=== PATIENT | female | born 1935 | race African-American/Black ===

== ENCOUNTER → 2017-11-06 | Outpatient (CLI) | payer MEDICARE, MEDICAID ==
[~2017-11-06] MED LIST: ALBU6.7H INH; AMLO10TA80 PO; ASPI-1159 PO; CHOL400C8 PO; CYCL30DR EACHEYE; DICL75TA5 PO; FLUT1DIS INH; IBUP-2030 PO; NASOI BOTHNSTRLS; PANT40TA4 PO; PROM6.2514 PO
== END | disposition home or self-care (01) ==
LOC: MRI 12:49
PROVIDERS: ATTEND Neurological Surgery
DX: M43.14 Spondylolisthesis, thoracic region (principal); M48.02 Spinal stenosis, cervical region; M50.322 Other cervical disc degeneration at C5-C6 level; M50.221 Other cervical disc displacement at C4-C5 level; M50.222 Other cervical disc displacement at C5-C6 level; G31.89 Other specified degenerative diseases of nervous system; M48.061 Spinal stenosis, lumbar region without neurogenic claudication
CPT/HCPCS: 70551; 72141; 72146; 72148

== ENCOUNTER 2019-07-09 17:58 | Emergency (ER) | payer MEDICARE, MEDICAID ==
[~2019-07-09] VITALS: Ht 165.1 cm; Wt 73.0 kg
[~2019-07-09 17:58] MED LIST changes: -ASPI-1159 PO; +ASPI-1393 PO
[2019-07-09 19:02] LABS: HEMOGLOBIN. 9.6 g/dL (12.0-16.0); MEAN CORPUSCULAR HEMOGLOBIN 28.9 pg (28.0-32.0); MEAN CORPUSCULAR VOLUME 87.1 fL (81.0-99.0); MEAN PLATELET VOLUME 8.2 fl (7.4-10.4); PLATELET 238 x1000/uL (130-400); RED BLOOD CELL COUNT 3.33 mill/uL (4.2-5.4); RED CELL DISTRIBUTION WIDTH 20.6 % (11.6-14.6)
[2019-07-09 19:09] LABS: CHLORIDE 97 mEq/L (98-107)
[2019-07-09] MEDS ORDERED: DICYCLOMINE 10 MG/5 ML ORAL SYR PO STA (19:45)
[2019-07-09] MEDS ORDERED: VISCOUS LIDOCAINE 2% 15 ML UDC PO STA (19:45)
[2019-07-09] MEDS ORDERED: MAGNESIUM/ALUMINUM HYDROXIDE/SIMETHICONE 30ML UDC PO STA (19:45)
[2019-07-09 19:59] LABS: PLATELET ESTIMATE NORMAL
[2019-07-09 20:45] VITALS: BP 139/84
== END 2019-07-09 20:54 | disposition home or self-care (01) ==
LOC: ER 17:58
DX: R10.9 Unspecified abdominal pain (principal); R07.9 Chest pain, unspecified; J44.9 Chronic obstructive pulmonary disease, unspecified; E11.9 Type 2 diabetes mellitus without complications; I10 Essential (primary) hypertension; G62.9 Polyneuropathy, unspecified; Z79.82 Long term (current) use of aspirin
CPT/HCPCS: 36415; 71045; 83880; 84484; 93005; 99284

== ENCOUNTER 2022-02-14 08:30 | Inpatient (IN) | payer MEDICARE, MEDICAID ==
[~2022-02-14] VITALS: Ht 162.6 cm; Wt 64.9 kg
[~2022-02-14 08:30] MED LIST changes: -ALBU6.7H INH; +ALBU6.7H15 INH; -ASPI-1393 PO; +ASPI-1497 PO; -PANT40TA4 PO; +PANT40TA51 PO
[2022-02-14] MEDS ORDERED: VISCOUS LIDOCAINE 2% 15 ML UDC PO STA (08:38)
[2022-02-14] MEDS ORDERED: DICYCLOMINE 10 MG/5 ML ORAL SYR PO STA (08:38)
[2022-02-14] MEDS ORDERED: MAGNESIUM/ALUMINUM HYDROXIDE/SIMETHICONE 30ML UDC PO STA (08:38)
[2022-02-14 09:14] LABS: BASOPHILS % 0.4 % (0.0-2.0); EOSINOPHILS % 0.5 % (0.0-5.0); LYMPHOCYTES % 27.1 % (20.0-50.0); MEAN CORPUSCULAR HEMOGLOBIN 29.5 pg (28.0-32.0); MEAN CORPUSCULAR VOLUME 88.1 fL (81.0-99.0); MEAN PLATELET VOLUME 7.4 fl (7.4-10.4); MONOCYTES % 7.7 % (2.0-8.0); NEUTROPHILS % 64.3 % (40.0-76.0); PLATELET 252 x1000/uL (130-400); RED BLOOD CELL COUNT 2.24 mill/uL (4.2-5.4); RED CELL DISTRIBUTION WIDTH 25.9 % (11.6-14.6)
[2022-02-14 09:15] LABS: CHLORIDE 106 mEq/L (98-107)
[2022-02-14 09:18] LABS: HEMOGLOBIN. 6.6 g/dL (12.0-16.0)
[2022-02-14 09:19] LABS: HEMATOCRIT. 19.7 % (36.0-48.0)
[2022-02-14 09:55] LABS: PLATELET ESTIMATE NORMAL
[2022-02-14 13:15] VITALS: BP 134/54
[2022-02-14 13:53] LABS: CLARITY URINE CLEAR (CLEAR); COLOR URINE YELLOW (YELLOW); KETONES URINE NEGATIVE (NEGATIVE); LEUKOCYTE ESTERASE URINE TRACE (NEGATIVE); NITRITE URINE NEGATIVE (NEGATIVE); OCCULT BLOOD URINE NEGATIVE (NEGATIVE); PROTEIN URINE TRACE (NEGATIVE); SPECIFIC GRAVITY URINE 1.016 (1.005-1.030); UROBILINOGEN URINE 0.2 E.U./dL (0.2-1.0)
[2022-02-14 16:00] VITALS: BP 129/56
[2022-02-14] MEDS ORDERED: CLONIDINE 0.1MG TABLET PO PRN (16:15)
[2022-02-14] MEDS ORDERED: CEFTRIAXONE 1 G PREMIX 50 ML IV SCH (16:15)
[2022-02-14] MEDS ORDERED: GUAIFENESIN 200MG/10ML SUGAR FREE UDC PO PRN (16:15)
[2022-02-14] MEDS ORDERED: LORAZEPAM 2MG/ML CPJ IV PRN (16:15)
[2022-02-14] MEDS ORDERED: HYDRALAZINE 20MG/ML VIAL IV PRN (16:15)
[2022-02-14] MEDS ORDERED: ONDANSETRON HCL 4MG/2ML INJ IV PRN (16:15)
[2022-02-14] MEDS ORDERED: MAGNESIUM/ALUMINUM HYDROXIDE/SIMETHICONE 30ML UDC PO PRN (16:15)
[2022-02-14] MEDS ORDERED: DOCUSATE SODIUM 100MG CAPSULE PO PRN (16:15)
[2022-02-14] MEDS ORDERED: IPRATROPIUM/ALBUTEROL 0.5-3(2.5)MG/3ML NEB HHN PRN (16:15)
[2022-02-14] MEDS ORDERED: MORPHINE SULFATE 2 MG/ML CPJ (NOT FOR IM USE) IV PRN (16:15)
[2022-02-14] MEDS ORDERED: DIPHENHYDRAMINE 50MG/ML VIAL IV PRN (16:15)
[2022-02-14] MEDS ORDERED: CEFTRIAXONE 1,000 MG in DEXTROSE 5% WATER 50 ML IV SCH (18:00)
[2022-02-14] MEDS: SODIUM CHLORIDE 0.45% 1,000 ML IV SCH (18:05)
[2022-02-14] MEDS ORDERED: GABA-529 PO (19:04)
[2022-02-14 20:00] VITALS: BP 92/35
[2022-02-14 21:06] VITALS: BP 102/38
[2022-02-14 21:21] VITALS: BP 117/46
[2022-02-14] MEDS: SODIUM CHLORIDE 0.9% INJ 3ML FLUSH IVF SCH (22:00)
[2022-02-14 22:30] VITALS: BP_SYST 114; BP_SYST 125; BP_DIAS 55; BP_DIAS 58
[2022-02-15] VITALS (7 sets, daily range): BP systolic 110–130; BP diastolic 40–56
[2022-02-15] MEDS: SODIUM CHLORIDE 0.9% INJ 3ML FLUSH IVF SCH ×3 (06:07→22:55)
[2022-02-15 06:36] LABS: HEMOGLOBIN. 7.9 g/dL (12.0-16.0); MEAN CORPUSCULAR HEMOGLOBIN 29.5 pg (28.0-32.0); MEAN CORPUSCULAR VOLUME 85.3 fL (81.0-99.0); MEAN PLATELET VOLUME 7.6 fl (7.4-10.4); PLATELET 211 x1000/uL (130-400); RED CELL DISTRIBUTION WIDTH 22.4 % (11.6-14.6)
[2022-02-15 06:54] LABS: CHLORIDE 105 mEq/L (98-107)
[2022-02-15 08:48] LABS: ATYPICAL LYMPHOCYTES 1; NUCLEATED RED BLOOD CELLS 6 /100 WBC
[2022-02-15 08:51] LABS: PLATELET ESTIMATE NORMAL
[2022-02-15] MEDS: SODIUM CHLORIDE 0.45% 1,000 ML IV SCH (12:30)
[2022-02-15 14:20] LABS: BG BASE EXCESS -2.3 mmol/L (-2.0-2.0); BG DEOXYHEMOGLOBIN 4.6 % (0.0-5.0); BG FRACTION INSPIRED OXYGEN 21; BG HCO3 ACT 20.4 mmol/L (22.0-26.0); BG METHEMOGLOBIN 0.3 % (0.0-1.5); BG OXYGEN SATURATION 95.3 % (92.0-98.5); BG OXYHEMOGLOBIN 94.1 % (94.0-97.0); BG PCO2 27.3 mmHg (35.0-45.0); BG PH 7.492 (7.350-7.450); BG PO2 77.6 mmHg (75.0-100.0); BG SAMPLE SITE RIGHT BRACHIAL; BG TOTAL HEMOGLOBIN 8.1 g/dL (12.0-18.0); BG VENT MODE ROOM AIR
[2022-02-15] MEDS: ACETAMINOPHEN 325MG TABLET PO PRN (15:57)
[2022-02-15] MEDS ORDERED: VANCOMYCIN 1GM PMX (XELLIA) 200 ML IV SCH (18:00)
[2022-02-15] MEDS: PIPERACILLIN/TAZOBACTAM 3.375 G in DEXTROSE 5% WATER 50 ML IV SCH (18:04)
[2022-02-15] MEDS: IPRATROPIUM/ALBUTEROL 0.5-3(2.5)MG/3ML NEB HHN SCH (21:01)
[2022-02-16] VITALS: BP 125/48
[2022-02-16] MEDS: IPRATROPIUM/ALBUTEROL 0.5-3(2.5)MG/3ML NEB HHN SCH ×3 (00:40→15:53)
[2022-02-16 04:00] VITALS: BP 118/44
[2022-02-16] MEDS: PIPERACILLIN/TAZOBACTAM 3.375 G in DEXTROSE 5% WATER 50 ML IV SCH ×5 (05:12→22:29)
[2022-02-16] MEDS: SODIUM CHLORIDE 0.9% INJ 3ML FLUSH IVF SCH ×3 (05:12→22:29)
[2022-02-16 08:00] VITALS: BP 118/54
[2022-02-16 08:02] LABS: TOTAL IRON BINDING CAPACITY 191 ug/dL (250-450)
[2022-02-16 08:08] LABS: FERRITIN 131 ng/mL (10-291)
[2022-02-16 08:11] LABS: VITAMIN B12 SERUM 1968 pg/mL (211-911)
[2022-02-16 08:16] LABS: FOLIC ACID (FOLATE) SERUM > 20.00 ng/mL (>5.38)
[2022-02-16 09:23] LABS: HEMATOCRIT 22.5 % (36.0-48.0); HEMOGLOBIN 7.5 g/dL (12.0-16.0); MEAN CORPUSCULAR HEMOGLOBIN 29.1 pg (28.0-32.0); PLATELET 188 x1000/uL (130-400); RED BLOOD CELL COUNT 2.58 mill/uL (4.2-5.4); RED CELL DISTRIBUTION WIDTH 23.1 % (11.6-14.6)
[2022-02-16] MEDS: SODIUM CHLORIDE 0.45% 1,000 ML IV SCH (09:31)
[2022-02-16 12:00] VITALS: BP 112/58
[2022-02-16] MEDS ORDERED: VANCOMYCIN 1000MG/20ML ORAL SOLN PO SCH (14:30)
[2022-02-16] MEDS ORDERED: NALOXONE HCL 0.4MG/ML VIAL IV PRN (15:45)
[2022-02-16 16:00] VITALS: BP 113/46
[2022-02-16] MEDS: VANCOMYCIN 1000MG/20ML ORAL SOLN PO SCH ×2 (18:30→23:48)
[2022-02-16 20:00] VITALS: BP 122/41
[2022-02-16] MEDS ORDERED: VANCOMYCIN 750MG PMX (XELLIA) 150 ML IV SCH (21:00)
[2022-02-16] MEDS: ACETAMINOPHEN 325MG TABLET PO PRN (22:32)
[2022-02-17] VITALS: BP 109/40
[2022-02-17] MEDS: SODIUM CHLORIDE 0.45% 1,000 ML IV SCH ×2 (03:52→23:54)
[2022-02-17 04:00] VITALS: BP 99/50
[2022-02-17] MEDS: PIPERACILLIN/TAZOBACTAM 3.375 G in DEXTROSE 5% WATER 50 ML IV SCH (05:13)
[2022-02-17] MEDS: SODIUM CHLORIDE 0.9% INJ 3ML FLUSH IVF SCH ×3 (05:14→21:21)
[2022-02-17] MEDS: VANCOMYCIN 1000MG/20ML ORAL SOLN PO SCH ×4 (05:14→23:54)
[2022-02-17] MEDS: HYDROCODONE/ACETAMINOPHEN 5/325MG TABLET PO PRN ×3 (05:20→23:54)
[2022-02-17 08:00] VITALS: BP 105/50
[2022-02-17 08:09] LABS: BASOPHILS % 0.6 % (0.0-2.0); EOSINOPHILS % 0.6 % (0.0-5.0); HEMATOCRIT. 21.9 % (36.0-48.0); HEMOGLOBIN. 7.4 g/dL (12.0-16.0); LYMPHOCYTES % 34.9 % (20.0-50.0); MEAN CORPUSCULAR HEMOGLOBIN 28.9 pg (28.0-32.0); MEAN CORPUSCULAR VOLUME 85.4 fL (81.0-99.0); MEAN PLATELET VOLUME 7.6 fl (7.4-10.4); MONOCYTES % 10.4 % (2.0-8.0); NEUTROPHILS % 53.5 % (40.0-76.0); PLATELET 178 x1000/uL (130-400); RED BLOOD CELL COUNT 2.56 mill/uL (4.2-5.4); RED CELL DISTRIBUTION WIDTH 22.9 % (11.6-14.6)
[2022-02-17] MEDS ORDERED: POTASSIUM CHLORIDE 20MEQ TABLET SR PO NR (10:45)
[2022-02-17 12:00] VITALS: BP 92/43
[2022-02-17] MEDS ORDERED: VANC250C5 MT (13:20)
[2022-02-17 16:00] VITALS: BP 103/48
[2022-02-17] MEDS: ALBUTEROL 6.7GM HFA INHALER ORI SCH ×3 (18:05→23:54)
[2022-02-17 20:00] VITALS: BP 97/41
[2022-02-18] VITALS: BP 104/44
[2022-02-18 04:00] VITALS: BP 118/46
[2022-02-18] MEDS: VANCOMYCIN 1000MG/20ML ORAL SOLN PO SCH (05:33)
[2022-02-18] MEDS: SODIUM CHLORIDE 0.9% INJ 3ML FLUSH IVF SCH (05:33)
[2022-02-18] MEDS: ALBUTEROL 6.7GM HFA INHALER ORI SCH (05:34)
[2022-02-18 08:00] VITALS: BP 123/48
[2022-02-18 08:37] LABS: BASOPHILS % 0.4 % (0.0-2.0); EOSINOPHILS % 1.3 % (0.0-5.0); HEMATOCRIT. 22.5 % (36.0-48.0); HEMOGLOBIN. 7.5 g/dL (12.0-16.0); LYMPHOCYTES % 39.6 % (20.0-50.0); MEAN CORPUSCULAR HEMOGLOBIN 28.9 pg (28.0-32.0); MEAN PLATELET VOLUME 7.5 fl (7.4-10.4); NEUTROPHILS % 50.7 % (40.0-76.0); PLATELET 178 x1000/uL (130-400); RED BLOOD CELL COUNT 2.59 mill/uL (4.2-5.4)
[2022-02-18 11:32] VITALS: BP 123/48
[2022-02-18 12:00] VITALS: BP 119/48
== END 2022-02-18 13:10 | disposition home or self-care (01) | DRG 871 ==
LOC: ER 08:50 → 7EST 11:19 → EDBEDREQ 11:26 → ENRESERV 11:47 → 7EST 02-16 21:12
PROVIDERS: ADMIT Internal Medicine; ATTEND Internal Medicine
PROC: 30233N1 Transfusion of Nonautologous Red Blood Cells into Peripheral Vein, Percutaneous Approach (ICD-10-PCS; principal; 2022-02-14)
DX: A41.89 Other specified sepsis (principal); U07.1 COVID-19; E43 Unspecified severe protein-calorie malnutrition; G92.8 Other toxic encephalopathy; A04.72 Enterocolitis due to Clostridium difficile, not specified as recurrent; D64.9 Anemia, unspecified; R65.20 Severe sepsis without septic shock; K57.30 Diverticulosis of large intestine without perforation or abscess without bleeding; E11.9 Type 2 diabetes mellitus without complications; J44.9 Chronic obstructive pulmonary disease, unspecified; M17.11 Unilateral primary osteoarthritis, right knee; I10 Essential (primary) hypertension; R41.0 Disorientation, unspecified; Z93.3 Colostomy status; Z79.82 Long term (current) use of aspirin; Z90.49 Acquired absence of other specified parts of digestive tract; Z68.24 Body mass index [BMI] 24.0-24.9, adult; Z79.899 Other long term (current) drug therapy; Z86.718 Personal history of other venous thrombosis and embolism
CPT/HCPCS: 36415; 36600; 71045; 74176; 80048; 80053; 80202; 81003; 82140; 82270; 82375; 82607; 82728; 82746; 82805; 82962; 83540; 83550; 84145; 85025; 85027; 85044; 86850; 86900; 86920; 87015; 87045; 87426; 87427; 87449; 87493; 89055; 93005; 94640; 99285; J0696; J2060; J2543; J3370; J7060; P9016

== ENCOUNTER 2022-02-19 18:26 | Inpatient (IN) | payer MEDICARE, MEDICAID ==
[~2022-02-19] VITALS: Ht 162.6 cm; Wt 62.1 kg
[~2022-02-19 18:26] MED LIST changes: -CHOL400C8 PO; -DICL75TA5 PO; -FLUT1DIS INH; +GABA-529 PO; -IBUP-2030 PO; -PANT40TA51 PO; -PROM6.2514 PO; +VANC250C5 MT
[2022-02-19 23:30] VITALS: BP 131/98
[2022-02-20] VITALS: BP_SYST 131; BP_DIAS 48; BP_DIAS 98
[2022-02-20] MEDS: ALBUTEROL 6.7GM HFA INHALER ORI SCH ×4 (03:45→15:47)
[2022-02-20 04:00] VITALS: BP 131/48
[2022-02-20 08:03] VITALS: BP 122/43
[2022-02-20] MEDS ORDERED: MORPHINE SULFATE 2 MG/ML CPJ (NOT FOR IM USE) IV PRN (09:15)
[2022-02-20] MEDS: ACETAMINOPHEN 325MG TABLET PO PRN ×2 (09:29→15:47)
[2022-02-20] MEDS ORDERED: NALOXONE HCL 0.4MG/ML VIAL IV PRN (09:30)
[2022-02-20 09:44] LABS: BASOPHILS % 0.3 % (0.0-2.0); HEMATOCRIT. 21.4 % (36.0-48.0); HEMOGLOBIN. 7.2 g/dL (12.0-16.0); LYMPHOCYTES % 38.1 % (20.0-50.0); MEAN CORPUSCULAR HEMOGLOBIN 28.8 pg (28.0-32.0); MEAN PLATELET VOLUME 7.6 fl (7.4-10.4); MONOCYTES % 12.2 % (2.0-8.0); NEUTROPHILS % 48.4 % (40.0-76.0); PLATELET 178 x1000/uL (130-400); RED BLOOD CELL COUNT 2.49 mill/uL (4.2-5.4); RED CELL DISTRIBUTION WIDTH 22.8 % (11.6-14.6)
[2022-02-20 11:37] LABS: PLATELET ESTIMATE NORMAL
[2022-02-20 12:00] VITALS: BP 113/40
[2022-02-20] MEDS: VANCOMYCIN 1000MG/20ML ORAL SOLN PO SCH ×2 (12:45→17:26)
[2022-02-20 16:00] VITALS: BP 118/50
[2022-02-20 20:00] VITALS: BP 113/63
[2022-02-21] VITALS: BP 112/43
[2022-02-21] MEDS: VANCOMYCIN 1000MG/20ML ORAL SOLN PO SCH ×5 (01:21→23:32)
[2022-02-21 04:00] VITALS: BP 122/47
[2022-02-21 08:00] VITALS: BP 123/44
[2022-02-21 12:00] VITALS: BP 130/55
[2022-02-21 16:00] VITALS: BP 149/56
[2022-02-21] MEDS: DICLOFENAC SODIUM 1% GEL 50GM TOP SCH ×2 (16:11→23:32)
[2022-02-21 19:55] LABS: BASOPHILS % 0.5 % (0.0-2.0); EOSINOPHILS % 0.7 % (0.0-5.0); HEMATOCRIT. 22.6 % (36.0-48.0); HEMOGLOBIN. 7.5 g/dL (12.0-16.0); LYMPHOCYTES % 39.9 % (20.0-50.0); MEAN CORPUSCULAR HEMOGLOBIN 29.2 pg (28.0-32.0); MEAN CORPUSCULAR VOLUME 88.1 fL (81.0-99.0); MEAN PLATELET VOLUME 7.4 fl (7.4-10.4); MONOCYTES % 14.9 % (2.0-8.0); PLATELET 178 x1000/uL (130-400); RED BLOOD CELL COUNT 2.57 mill/uL (4.2-5.4); RED CELL DISTRIBUTION WIDTH 22.8 % (11.6-14.6)
[2022-02-21 20:00] VITALS: BP 112/50
[2022-02-21 20:14] LABS: CHLORIDE 104 mEq/L (98-107)
[2022-02-21] MEDS: ALBUTEROL 6.7GM HFA INHALER ORI SCH (20:58)
[2022-02-22] VITALS: BP 107/52
[2022-02-22 04:00] VITALS: BP 109/45
[2022-02-22] MEDS: VANCOMYCIN 1000MG/20ML ORAL SOLN PO SCH ×2 (05:03→14:02)
[2022-02-22] MEDS: ALBUTEROL 6.7GM HFA INHALER ORI SCH ×2 (05:03→09:01)
[2022-02-22 07:31] VITALS: BP 123/55
[2022-02-22] MEDS: DICLOFENAC SODIUM 1% GEL 50GM TOP SCH (09:00)
[2022-02-22 12:08] VITALS: BP 119/53
[2022-02-22 12:42] VITALS: BP 119/53
[2022-02-22 13:05] VITALS: BP 119/53
[2022-02-23] MEDS ORDERED: VANCOMYCIN 1000MG/20ML ORAL SOLN PO SCH (12:00)
== END 2022-02-22 15:00 | disposition home or self-care (01) | DRG 871 ==
LOC: ER 18:26 → 7WST 23:57 → 7EST 02-21 10:01
PROVIDERS: ADMIT Internal Medicine; ATTEND Internal Medicine
DX: A41.89 Other specified sepsis (principal); U07.1 COVID-19; G92.8 Other toxic encephalopathy; A04.72 Enterocolitis due to Clostridium difficile, not specified as recurrent; D64.9 Anemia, unspecified; I10 Essential (primary) hypertension; J45.909 Unspecified asthma, uncomplicated; M17.11 Unilateral primary osteoarthritis, right knee; R65.20 Severe sepsis without septic shock; A41.4 Sepsis due to anaerobes; Z79.899 Other long term (current) drug therapy; Z86.718 Personal history of other venous thrombosis and embolism
CPT/HCPCS: 36415; 71045; 73560; 80048; 85025; 87426; 93970; 99285; C9803; J3370

== ENCOUNTER 2022-09-14 14:21 | Inpatient (IN) | payer MEDICARE, MEDICAID ==
[~2022-09-14] VITALS: Ht 165.1 cm; Wt 59.9 kg
[2022-09-14] MEDS ORDERED: KETOROLAC 60MG/2ML VIAL IM STA (15:23)
[2022-09-14 16:18] LABS: BASOPHILS % 0.3 % (0.0-2.0); EOSINOPHILS % 0.4 % (0.0-5.0); LYMPHOCYTES % 30.3 % (20.0-50.0); MEAN CORPUSCULAR HEMOGLOBIN 31.9 pg (28.0-32.0); MEAN CORPUSCULAR VOLUME 94.6 fL (81.0-99.0); MEAN PLATELET VOLUME 7.6 fl (7.4-10.4); PLATELET 203 x1000/uL (130-400); RED BLOOD CELL COUNT 2.09 mill/uL (4.2-5.4)
[2022-09-14 16:27] LABS: CHLORIDE 102 mEq/L (98-107)
[2022-09-14 16:33] LABS: HEMATOCRIT. 19.8 % (36.0-48.0); HEMOGLOBIN. 6.7 g/dL (12.0-16.0)
[2022-09-14] MEDS ORDERED: SODIUM CHLORIDE 0.9% 1,000 ML IV ONE (17:15)
[2022-09-14] MEDS ORDERED: MORPHINE SULFATE 4 MG/ML CPJ (NOT FOR IM USE) IV STA (17:15)
[2022-09-14] MEDS ORDERED: ONDANSETRON HCL 4MG/2ML INJ IV STA (17:15)
[2022-09-14] MEDS ORDERED: POTASSIUM CHLORIDE 20MEQ TABLET SR PO ONE (18:15)
[2022-09-14 19:00] LABS: PLATELET ESTIMATE NORMAL
[2022-09-14] MEDS ORDERED: CLONIDINE 0.1MG TABLET PO PRN (20:15)
[2022-09-14] MEDS ORDERED: ENOXAPARIN 40MG/0.4ML SYR SUBCUT SCH (20:15)
[2022-09-14] MEDS ORDERED: IPRATROPIUM/ALBUTEROL 0.5-3(2.5)MG/3ML NEB HHN PRN (20:15)
[2022-09-14] MEDS ORDERED: DOCUSATE SODIUM 100MG CAPSULE PO PRN (20:15)
[2022-09-14] MEDS ORDERED: ACETAMINOPHEN 325MG TABLET PO PRN ×2 (20:15)
[2022-09-14] MEDS ORDERED: GUAIFENESIN 200MG/10ML SUGAR FREE UDC PO PRN (20:15)
[2022-09-14] MEDS ORDERED: ONDANSETRON HCL 4MG/2ML INJ IV PRN (20:15)
[2022-09-14] MEDS ORDERED: NALOXONE HCL 0.4MG/ML VIAL IV PRN (20:30)
[2022-09-14 20:52] LABS: TOTAL IRON BINDING CAPACITY 144 ug/dL (250-450)
[2022-09-14 21:16] LABS: CLARITY URINE CLEAR (CLEAR); COLOR URINE YELLOW (YELLOW); KETONES URINE NEGATIVE (NEGATIVE); LEUKOCYTE ESTERASE URINE 2+ (NEGATIVE); NITRITE URINE NEGATIVE (NEGATIVE); OCCULT BLOOD URINE NEGATIVE (NEGATIVE); PH URINE 6.5 (4.5-8.0); PROTEIN URINE TRACE (NEGATIVE); SPECIFIC GRAVITY URINE 1.015 (1.005-1.030); UROBILINOGEN URINE 0.2 E.U./dL (0.2-1.0)
[2022-09-14 21:45] LABS: PHOSPHORUS 3.6 mg/dL (2.5-4.9)
[2022-09-14 22:17] LABS: VITAMIN B12 SERUM 614 pg/mL (211-911)
[2022-09-14 22:28] LABS: FOLIC ACID (FOLATE) SERUM > 20.00 ng/mL (>5.38)
[2022-09-15] VITALS (7 sets, daily range): BP systolic 115–130; BP diastolic 42–58
[2022-09-15] MEDS ORDERED: MAGNESIUM 2 G PREMIX 50 ML IV NR (00:30)
[2022-09-15] MEDS ORDERED: CEFTRIAXONE 1 G PREMIX 50 ML IV SCH (00:45)
[2022-09-15] MEDS ORDERED: SODIUM CHLORIDE 0.9% 1,000 ML IV ONE (00:45)
[2022-09-15] MEDS: CEFTRIAXONE 1,000 MG in DEXTROSE 5% WATER 50 ML IV SCH (05:40)
[2022-09-15 07:35] LABS: BASOPHILS % 0.3 % (0.0-2.0); EOSINOPHILS % 0.3 % (0.0-5.0); HEMATOCRIT. 24.2 % (36.0-48.0); LYMPHOCYTES % 32.8 % (20.0-50.0); MEAN CORPUSCULAR HEMOGLOBIN 32.2 pg (28.0-32.0); MEAN PLATELET VOLUME 7.7 fl (7.4-10.4); MONOCYTES % 9.3 % (2.0-8.0); NEUTROPHILS % 57.3 % (40.0-76.0); PLATELET 193 x1000/uL (130-400); RED BLOOD CELL COUNT 2.55 mill/uL (4.2-5.4); RED CELL DISTRIBUTION WIDTH 21.6 % (11.6-14.6)
[2022-09-15 07:48] LABS: HEMOGLOBIN. 8.2 g/dL (12.0-16.0)
[2022-09-15 08:17] LABS: CHLORIDE 105 mEq/L (98-107)
[2022-09-15 08:39] LABS: HDL CHOLESTEROL 30 mg/dL (40-59); LDL CHOLESTEROL 55 mg/dL (5-100); T4 FREE 1.13 ng/dL (0.76-1.46)
[2022-09-15 09:17] LABS: HEMATOCRIT 23.8 % (36.0-48.0); HEMOGLOBIN 8.2 g/dL (12.0-16.0)
[2022-09-15] MEDS ORDERED: FLUT16SP15 (11:00)
[2022-09-15] MEDS ORDERED: PANT40TA51 PO (11:00)
[2022-09-15] MEDS: MAGNESIUM/ALUMINUM HYDROXIDE/SIMETHICONE 30ML UDC PO PRN (12:15)
[2022-09-15] MEDS: HYDROCODONE/ACETAMINOPHEN 5/325MG TABLET PO PRN ×2 (12:19→19:07)
[2022-09-15] MEDS: SODIUM CHLORIDE 0.9% 1,000 ML IV SCH (17:25)
[2022-09-15] MEDS ORDERED: INFLUENZA VACCINE 05/PF 0.5 ML SYRINGE IM ONE (21:00)
[2022-09-16] MEDS ORDERED: CEFTRIAXONE 1,000 MG in DEXTROSE 5% WATER 50 ML IV SCH (00:45)
[2022-09-16 04:00] VITALS: BP 126/52
[2022-09-16] MEDS: SODIUM CHLORIDE 0.9% 1,000 ML IV SCH ×2 (04:33→13:00)
[2022-09-16] MEDS: CEFTRIAXONE 1,000 MG in DEXTROSE 5% WATER 50 ML IV SCH (06:25)
[2022-09-16 08:00] VITALS: BP 114/41
[2022-09-16 08:08] LABS: BASOPHILS % 0.1 % (0.0-2.0); EOSINOPHILS % 0.3 % (0.0-5.0); HEMATOCRIT. 23.3 % (36.0-48.0); LYMPHOCYTES % 14.9 % (20.0-50.0); MEAN CORPUSCULAR HEMOGLOBIN 32.8 pg (28.0-32.0); MEAN CORPUSCULAR VOLUME 95.8 fL (81.0-99.0); MEAN PLATELET VOLUME 7.8 fl (7.4-10.4); MONOCYTES % 5.2 % (2.0-8.0); NEUTROPHILS % 79.5 % (40.0-76.0); PLATELET 186 x1000/uL (130-400); RED BLOOD CELL COUNT 2.43 mill/uL (4.2-5.4); RED CELL DISTRIBUTION WIDTH 21.9 % (11.6-14.6)
[2022-09-16 09:36] LABS: CHLORIDE 104 mEq/L (98-107)
[2022-09-16 10:02] LABS: PHOSPHORUS 3.6 mg/dL (2.5-4.9)
[2022-09-16] MEDS: MAGNESIUM/ALUMINUM HYDROXIDE/SIMETHICONE 30ML UDC PO PRN (10:24)
[2022-09-16] MEDS: HYDROCODONE/ACETAMINOPHEN 5/325MG TABLET PO PRN ×2 (10:26→15:34)
[2022-09-16 12:00] VITALS: BP 108/45
[2022-09-16] MEDS ORDERED: SULF1TAB48 MT ×4 (13:06→14:38)
[2022-09-16 16:00] VITALS: BP 97/42
[2022-09-19 07:10] LABS: A/G RATIO 0.4 (0.7-1.7); ALBUMIN 3.3 g/dL (2.9-4.4); ALPHA-1-GLOBULIN 0.3 g/dL (0.0-0.4); ALPHA-2-GLOBULIN 0.7 g/dL (0.4-1.0); BETA GLOBULIN 0.9 g/dL (0.7-1.3); GAMMA GLOBULINS 6.6 g/dL (0.4-1.8); GLOBULIN TOTAL 8.6 g/dL (2.2-3.9); M-SPIKE 6.3 g/dL (Not Observed); TOTAL PROTEIN SERUM 11.9 g/dL (6.0-8.5)
== END 2022-09-16 17:55 | disposition home health service (06) | DRG 392 ==
LOC: ER 14:21 → EDBEDREQ 18:48 → EDBEDREQSVC 18:48 → SUPCPDRO 22:37 → ENRESERV 23:01 → 6EST 09-15 00:44
PROVIDERS: ADMIT Internal Medicine; ATTEND Internal Medicine
PROC: 30233N1 Transfusion of Nonautologous Red Blood Cells into Peripheral Vein, Percutaneous Approach (ICD-10-PCS; principal; 2022-09-15)
DX: K57.90 Diverticulosis of intestine, part unspecified, without perforation or abscess without bleeding (principal); N17.9 Acute kidney failure, unspecified; E44.0 Moderate protein-calorie malnutrition; N39.0 Urinary tract infection, site not specified; E87.1 Hypo-osmolality and hyponatremia; E87.6 Hypokalemia; E83.42 Hypomagnesemia; E11.9 Type 2 diabetes mellitus without complications; Z20.822 Contact with and (suspected) exposure to COVID-19; G89.29 Other chronic pain; M19.90 Unspecified osteoarthritis, unspecified site; D63.8 Anemia in other chronic diseases classified elsewhere; I10 Essential (primary) hypertension; J44.9 Chronic obstructive pulmonary disease, unspecified; Z87.11 Personal history of peptic ulcer disease; Z90.710 Acquired absence of both cervix and uterus; Z93.3 Colostomy status; Z79.899 Other long term (current) drug therapy; Z68.22 Body mass index [BMI] 22.0-22.9, adult; Z79.82 Long term (current) use of aspirin; Z90.49 Acquired absence of other specified parts of digestive tract
CPT/HCPCS: 36415; 71045; 74176; 76770; 80053; 80061; 81003; 82270; 82607; 82728; 82746; 82962; 83540; 83550; 83735; 83930; 84100; 84155; 84165; 84439; 84443; 84484; 85014; 85018; 85025; 86850; 86900; 86920; 87426; 90686; 93005; 99285; J0696; J3475; J7030; J7060; P9016

== ENCOUNTER 2022-09-25 12:45 | Inpatient (IN) | payer MEDICARE, MEDICAID ==
[~2022-09-25] VITALS: Ht 165.1 cm; Wt 57.2 kg
[~2022-09-25 12:45] MED LIST changes: +FLUT16SP15; +PANT40TA51 PO; +SULF1TAB48 MT; -VANC250C5 MT
[2022-09-25] MEDS ORDERED: ACETAMINOPHEN 325MG TABLET PO ONE (14:00)
[2022-09-25] MEDS ORDERED: NITROGLYCERIN 0.4MG TABLET SL SL PRN (14:00)
[2022-09-25 14:46] LABS: HEMATOCRIT. 21.8 % (36.0-48.0); HEMOGLOBIN. 7.3 g/dL (12.0-16.0); MEAN CORPUSCULAR HEMOGLOBIN 31.7 pg (28.0-32.0); MEAN CORPUSCULAR VOLUME 94.8 fL (81.0-99.0); MEAN PLATELET VOLUME 7.6 fl (7.4-10.4); PLATELET 245 x1000/uL (130-400); RED CELL DISTRIBUTION WIDTH 22.3 % (11.6-14.6)
[2022-09-25 15:02] LABS: CHLORIDE 97 mEq/L (98-107)
[2022-09-25] MEDS ORDERED: SODIUM CHLORIDE 0.9% 1,000 ML IV SCH (16:45)
[2022-09-25] MEDS ORDERED: ASPIRIN 325MG EC TABLET PO NR (17:15)
[2022-09-25 17:38] LABS: NUCLEATED RED BLOOD CELLS 6 /100 WBC; PLATELET ESTIMATE NORMAL
[2022-09-25] MEDS ORDERED: GUAIFENESIN 200MG/10ML SUGAR FREE UDC PO PRN (17:45)
[2022-09-25] MEDS ORDERED: ACETAMINOPHEN 325MG TABLET PO PRN ×2 (17:45)
[2022-09-25] MEDS ORDERED: ONDANSETRON HCL 4MG/2ML INJ IV PRN (17:45)
[2022-09-25] MEDS ORDERED: DOCUSATE SODIUM 100MG CAPSULE PO PRN (17:45)
[2022-09-25] MEDS ORDERED: HYDROCODONE/ACETAMINOPHEN 5/325MG TABLET PO PRN (17:45)
[2022-09-25] MEDS ORDERED: MORPHINE SULFATE 2 MG/ML CPJ (NOT FOR IM USE) IV PRN (17:45)
[2022-09-25] MEDS ORDERED: IPRATROPIUM/ALBUTEROL 0.5-3(2.5)MG/3ML NEB HHN PRN (17:45)
[2022-09-25 18:05] LABS: TOTAL IRON BINDING CAPACITY 136 ug/dL (250-450)
[2022-09-25] MEDS ORDERED: NALOXONE HCL 0.4MG/ML VIAL IV PRN (18:15)
[2022-09-25 18:35] LABS: VITAMIN B12 SERUM 767 pg/mL (211-911)
[2022-09-25 18:40] LABS: PHOSPHORUS 3.8 mg/dL (2.5-4.9)
[2022-09-25 18:49] LABS: T4 FREE 1.04 ng/dL (0.76-1.46)
[2022-09-25] MEDS: SODIUM CHLORIDE 0.9% 1,000 ML IV SCH (18:59)
[2022-09-25] MEDS: IPRATROPIUM/ALBUTEROL 0.5-3(2.5)MG/3ML NEB HHN SCH (20:30)
[2022-09-25] MEDS ORDERED: FAMOTIDINE 20MG TABLET PO SCH (21:00)
[2022-09-25 22:00] VITALS: BP 111/43
[2022-09-26] VITALS (7 sets, daily range): BP systolic 108–125; BP diastolic 35–52
[2022-09-26] MEDS: IPRATROPIUM/ALBUTEROL 0.5-3(2.5)MG/3ML NEB HHN SCH ×3 (02:02→14:23)
[2022-09-26] MEDS: SODIUM CHLORIDE 0.9% 1,000 ML IV SCH (04:56)
[2022-09-26 06:15] LABS: HEMOGLOBIN. 7.1 g/dL (12.0-16.0); MEAN CORPUSCULAR VOLUME 94.5 fL (81.0-99.0); MEAN PLATELET VOLUME 7.7 fl (7.4-10.4); PLATELET 232 x1000/uL (130-400); RED BLOOD CELL COUNT 2.21 mill/uL (4.2-5.4); RED CELL DISTRIBUTION WIDTH 22.6 % (11.6-14.6)
[2022-09-26] MEDS ORDERED: *PATIENT'S OWN MEDICATION STORAGE XX SCH (07:00)
[2022-09-26 08:51] LABS: HEMATOCRIT. 20.9 % (36.0-48.0)
[2022-09-26] MEDS ORDERED: AMLODIPINE 10MG TABLET PO SCH (09:00)
[2022-09-26 10:25] LABS: NUCLEATED RED BLOOD CELLS 6 /100 WBC
[2022-09-26 10:28] LABS: PLATELET ESTIMATE NORMAL
[2022-09-26] MEDS ORDERED: SODIUM CHLORIDE 0.9% 1,000 ML IV SCH (16:45)
[2022-09-26] MEDS: SUCRALFATE 1 G/10 ML UDC PO SCH ×3 (17:10→21:03)
[2022-09-26] MEDS: PANTOPRAZOLE SODIUM 40 MG/VIAL IV SCH (20:02)
[2022-09-27] VITALS (9 sets, daily range): BP systolic 99–136; BP diastolic 44–75
[2022-09-27] MEDS: DEXT 5%/0.9% NACL 1,000 ML IV SCH ×2 (02:42→17:55)
[2022-09-27 04:18] LABS: INR 1.2
[2022-09-27 04:23] LABS: HEMATOCRIT. 25.8 % (36.0-48.0); HEMOGLOBIN. 8.7 g/dL (12.0-16.0); MEAN CORPUSCULAR HEMOGLOBIN 31.6 pg (28.0-32.0); MEAN CORPUSCULAR VOLUME 93.7 fL (81.0-99.0); MEAN PLATELET VOLUME 7.5 fl (7.4-10.4); PLATELET 242 x1000/uL (130-400); RED BLOOD CELL COUNT 2.75 mill/uL (4.2-5.4); RED CELL DISTRIBUTION WIDTH 20.7 % (11.6-14.6)
[2022-09-27] MEDS: SUCRALFATE 1 G/10 ML UDC PO SCH ×4 (06:50→19:51)
[2022-09-27 07:47] LABS: NUCLEATED RED BLOOD CELLS 4 /100 WBC
[2022-09-27 07:48] LABS: PLATELET ESTIMATE NORMAL
[2022-09-27] MEDS: IPRATROPIUM/ALBUTEROL 0.5-3(2.5)MG/3ML NEB HHN SCH ×3 (09:43→20:40)
[2022-09-27] MEDS: PANTOPRAZOLE SODIUM 40 MG/VIAL IV SCH ×2 (10:17→19:51)
[2022-09-27] MEDS ORDERED: SIMETHICONE 40 MG/0.6 ML 15ML ONE (10:18)
[2022-09-27 11:19] LABS: BASOPHILS % 0.5 % (0.0-2.0); EOSINOPHILS % 0.5 % (0.0-5.0); HEMATOCRIT. 23.9 % (36.0-48.0); HEMOGLOBIN. 8.3 g/dL (12.0-16.0); LYMPHOCYTES % 23.2 % (20.0-50.0); MEAN CORPUSCULAR HEMOGLOBIN 32.8 pg (28.0-32.0); MEAN CORPUSCULAR VOLUME 94.5 fL (81.0-99.0); MONOCYTES % 7.8 % (2.0-8.0); RED BLOOD CELL COUNT 2.53 mill/uL (4.2-5.4); RED CELL DISTRIBUTION WIDTH 20.8 % (11.6-14.6)
[2022-09-27] MEDS ORDERED: FENTANYL CITRATE/PF 50MCG/ML 2ML VIAL ONE (11:26)
[2022-09-27] MEDS ORDERED: MIDAZOLAM HCL 2 MG/2 ML VIAL ONE (11:26)
[2022-09-27 11:28] LABS: INR 1.2
[2022-09-27] MEDS ORDERED: EPHEDRINE SULFATE 50MG/ML VIAL ONE ×44 (11:29→11:30)
[2022-09-27] MEDS ORDERED: PROPOFOL 200MG/20ML VIAL IV ONE (12:35)
[2022-09-27 13:49] LABS: MEAN PLATELET VOLUME 7.8 fl (7.4-10.4); PLATELET 241 x1000/uL (130-400)
[2022-09-27 16:28] LABS: HEMATOCRIT 23.7 % (36.0-48.0)
[2022-09-28] VITALS: BP 111/48
[2022-09-28] MEDS: IPRATROPIUM/ALBUTEROL 0.5-3(2.5)MG/3ML NEB HHN SCH ×4 (01:50→21:00)
[2022-09-28 04:00] VITALS: BP 122/48
[2022-09-28] MEDS: DEXT 5%/0.9% NACL 1,000 ML IV SCH (05:01)
[2022-09-28] MEDS: SUCRALFATE 1 G/10 ML UDC PO SCH ×4 (06:17→20:11)
[2022-09-28 07:49] LABS: BASOPHILS % 0.2 % (0.0-2.0); EOSINOPHILS % 0.5 % (0.0-5.0); HEMATOCRIT. 22.5 % (36.0-48.0); HEMOGLOBIN. 7.6 g/dL (12.0-16.0); LYMPHOCYTES % 29.5 % (20.0-50.0); MEAN CORPUSCULAR HEMOGLOBIN 31.6 pg (28.0-32.0); MEAN CORPUSCULAR VOLUME 93.4 fL (81.0-99.0); MEAN PLATELET VOLUME 7.6 fl (7.4-10.4); MONOCYTES % 8.4 % (2.0-8.0); NEUTROPHILS % 61.4 % (40.0-76.0); PLATELET 225 x1000/uL (130-400); RED CELL DISTRIBUTION WIDTH 20.5 % (11.6-14.6)
[2022-09-28 08:20] VITALS: BP 121/53
[2022-09-28] MEDS: PANTOPRAZOLE SODIUM 40 MG/VIAL IV SCH ×2 (08:30→20:11)
[2022-09-28 11:29] VITALS: BP 117/45
[2022-09-28 16:04] VITALS: BP 129/58
[2022-09-28 19:36] LABS: HEMATOCRIT 23.8 % (36.0-48.0); HEMOGLOBIN 8.1 g/dL (12.0-16.0)
[2022-09-28 20:00] VITALS: BP 148/66
[2022-09-28] MEDS ORDERED: POTASSIUM CHLORIDE 20MEQ TABLET SR PO NR (22:45)
[2022-09-29] VITALS: BP 112/57
[2022-09-29 01:31] LABS: HEMATOCRIT 23.1 % (36.0-48.0); HEMOGLOBIN 7.9 g/dL (12.0-16.0)
[2022-09-29] MEDS: IPRATROPIUM/ALBUTEROL 0.5-3(2.5)MG/3ML NEB HHN SCH ×4 (02:02→21:09)
[2022-09-29 04:00] VITALS: BP 134/55
[2022-09-29] MEDS: SUCRALFATE 1 G/10 ML UDC PO SCH ×4 (06:20→20:10)
[2022-09-29 06:39] LABS: HEMATOCRIT 23.8 % (36.0-48.0)
[2022-09-29 06:53] LABS: BASOPHILS % 0.2 % (0.0-2.0); EOSINOPHILS % 0.5 % (0.0-5.0); HEMATOCRIT. 22.7 % (36.0-48.0); HEMOGLOBIN. 7.7 g/dL (12.0-16.0); LYMPHOCYTES % 30.7 % (20.0-50.0); MEAN CORPUSCULAR HEMOGLOBIN 31.5 pg (28.0-32.0); MEAN CORPUSCULAR VOLUME 93.1 fL (81.0-99.0); MEAN PLATELET VOLUME 7.3 fl (7.4-10.4); MONOCYTES % 8.2 % (2.0-8.0); NEUTROPHILS % 60.4 % (40.0-76.0); PLATELET 209 x1000/uL (130-400); RED BLOOD CELL COUNT 2.44 mill/uL (4.2-5.4); RED CELL DISTRIBUTION WIDTH 20.6 % (11.6-14.6)
[2022-09-29 08:00] VITALS: BP 123/70
[2022-09-29] MEDS: PANTOPRAZOLE SODIUM 40 MG/VIAL IV SCH ×2 (09:10→20:10)
[2022-09-29 12:00] VITALS: BP 120/66
[2022-09-29 16:00] VITALS: BP 135/65
[2022-09-29 16:24] LABS: HEMATOCRIT 24.2 % (36.0-48.0); HEMOGLOBIN 8.1 g/dL (12.0-16.0)
[2022-09-29] MEDS ORDERED: SODIUM CHLORIDE 0.9% 1,000 ML IV SCH (17:30)
[2022-09-29 20:00] VITALS: BP 122/49
[2022-09-30] VITALS: BP 129/61
[2022-09-30] MEDS: IPRATROPIUM/ALBUTEROL 0.5-3(2.5)MG/3ML NEB HHN SCH ×3 (02:53→14:41)
[2022-09-30 04:00] VITALS: BP 120/43
[2022-09-30] MEDS: SUCRALFATE 1 G/10 ML UDC PO SCH ×2 (06:37→12:40)
[2022-09-30 07:40] LABS: BASOPHILS % 0.4 % (0.0-2.0); EOSINOPHILS % 0.8 % (0.0-5.0); HEMATOCRIT. 24.2 % (36.0-48.0); HEMOGLOBIN. 8.1 g/dL (12.0-16.0); MEAN CORPUSCULAR HEMOGLOBIN 31.6 pg (28.0-32.0); MEAN CORPUSCULAR VOLUME 94.1 fL (81.0-99.0); MEAN PLATELET VOLUME 7.2 fl (7.4-10.4); MONOCYTES % 8.5 % (2.0-8.0); NEUTROPHILS % 55.3 % (40.0-76.0); PLATELET 213 x1000/uL (130-400); RED BLOOD CELL COUNT 2.57 mill/uL (4.2-5.4); RED CELL DISTRIBUTION WIDTH 20.6 % (11.6-14.6)
[2022-09-30 08:00] VITALS: BP 119/53
[2022-09-30] MEDS: PANTOPRAZOLE SODIUM 40 MG/VIAL IV SCH (08:37)
[2022-09-30 12:00] VITALS: BP 120/54
[2022-09-30 14:37] VITALS: BP 120/54
[2022-10-02 13:11] LABS: A/G RATIO 0.5 (0.7-1.7); ALBUMIN 4.1 g/dL (2.9-4.4); ALPHA-1-GLOBULIN 0.4 g/dL (0.0-0.4); ALPHA-2-GLOBULIN 0.8 g/dL (0.4-1.0); BETA GLOBULIN 1.1 g/dL (0.7-1.3); GAMMA GLOBULINS 6.8 g/dL (0.4-1.8); GLOBULIN TOTAL 9.1 g/dL (2.2-3.9); M-SPIKE 6.5 g/dL (Not Observed); TOTAL PROTEIN SERUM 13.2 g/dL (6.0-8.5)
== END 2022-09-30 16:10 | disposition home health service (06) | DRG 377 ==
LOC: ER 12:45 → EDBEDREQ 14:14 → 8WST 17:03 → EDBEDREQ 17:26 → EDBEDREQTM 17:26 → ENRESERV 20:30
PROVIDERS: ADMIT Internal Medicine; ATTEND Internal Medicine
PROC: 30233N1 Transfusion of Nonautologous Red Blood Cells into Peripheral Vein, Percutaneous Approach (ICD-10-PCS; 2022-09-26)
PROC: 0DB78ZX Excision of Stomach, Pylorus, Via Natural or Artificial Opening Endoscopic, Diagnostic (ICD-10-PCS; principal; 2022-09-27)
DX: K29.71 Gastritis, unspecified, with bleeding (principal); J96.00 Acute respiratory failure, unspecified whether with hypoxia or hypercapnia; N17.0 Acute kidney failure with tubular necrosis; E44.0 Moderate protein-calorie malnutrition; E87.1 Hypo-osmolality and hyponatremia; N18.9 Chronic kidney disease, unspecified; E11.22 Type 2 diabetes mellitus with diabetic chronic kidney disease; E86.1 Hypovolemia; D63.1 Anemia in chronic kidney disease; E87.6 Hypokalemia; Z20.822 Contact with and (suspected) exposure to COVID-19; E88.09 Other disorders of plasma-protein metabolism, not elsewhere classified; D72.825 Bandemia; Z87.11 Personal history of peptic ulcer disease; Z86.718 Personal history of other venous thrombosis and embolism; Z79.899 Other long term (current) drug therapy; Z68.21 Body mass index [BMI] 21.0-21.9, adult; Z79.82 Long term (current) use of aspirin; Z93.3 Colostomy status
CPT/HCPCS: 36415; 71045; 74176; 76770; 78582; 80048; 80053; 80061; 82607; 82728; 82746; 83540; 83550; 83735; 83880; 84100; 84155; 84165; 84439; 84443; 84484; 85014; 85018; 85025; 85044; 85049; 85379; 85384; 86850; 86900; 86920; 87426; 87804; 88305; 93005; 93306; 93970; 94640; 97162; 97166; 99285; A9558; C9113; C9803; J2250; J2270; J2704; J3010; J3490; J7030; J7042; P9016; A4315

== ENCOUNTER 2022-11-27 12:23 | Inpatient (IN) | payer MEDICARE, MEDICAID ==
[~2022-11-27] VITALS: Ht 162.6 cm; Wt 47.8 kg
[2022-11-27] MEDS ORDERED: SODIUM CHLORIDE 0.9% 1,000 ML IV ONE (13:00)
[2022-11-27 14:53] LABS: MEAN CORPUSCULAR HEMOGLOBIN 33.1 pg (28.0-32.0); MEAN PLATELET VOLUME 7.7 fl (7.4-10.4); PLATELET 180 x1000/uL (130-400); RED BLOOD CELL COUNT 1.88 mill/uL (4.2-5.4); RED CELL DISTRIBUTION WIDTH 26.2 % (11.6-14.6)
[2022-11-27 14:58] LABS: INR 1.4; PROTHROMBIN TIME 14.3 sec (9.6-11.0)
[2022-11-27 15:01] LABS: CHLORIDE 104 mEq/L (98-107)
[2022-11-27 15:15] LABS: HEMOGLOBIN. 6.2 g/dL (12.0-16.0)
[2022-11-27 15:16] LABS: HEMATOCRIT. 18.8 % (36.0-48.0)
[2022-11-27] MEDS ORDERED: CEFTRIAXONE 1 G PREMIX 50 ML IV NR (15:30)
[2022-11-27] MEDS ORDERED: AZITHROMYCIN 500MG/250ML 250 ML IV NR (15:30)
[2022-11-27] MEDS ORDERED: DEXT 5% WATER + KCL 40MEQ/L 1,000 ML IV ONE (16:00)
[2022-11-27] MEDS ORDERED: ACETAMINOPHEN 650MG SUPP PR PRN ×2 (16:30)
[2022-11-27] MEDS ORDERED: ONDANSETRON HCL 4MG/2ML INJ IV PRN (16:30)
[2022-11-27] MEDS ORDERED: IPRATROPIUM/ALBUTEROL 0.5-3(2.5)MG/3ML NEB HHN PRN (16:30)
[2022-11-27] MEDS ORDERED: DEXT 5%/0.9% NACL 1,000 ML IV SCH (16:45)
[2022-11-27 16:58] LABS: NUCLEATED RED BLOOD CELLS 7 /100 WBC; PLATELET ESTIMATE NORMAL
[2022-11-27] MEDS: PANTOPRAZOLE SODIUM 40 MG/VIAL IV SCH (17:24)
[2022-11-27 17:25] LABS: CLARITY URINE CLEAR (CLEAR); COLOR URINE YELLOW (YELLOW); KETONES URINE TRACE (NEGATIVE); LEUKOCYTE ESTERASE URINE NEGATIVE (NEGATIVE); NITRITE URINE NEGATIVE (NEGATIVE); OCCULT BLOOD URINE NEGATIVE (NEGATIVE); PH URINE 5.5 (4.5-8.0); PROTEIN URINE 1+ (NEGATIVE); SPECIFIC GRAVITY URINE 1.015 (1.005-1.030); UROBILINOGEN URINE 0.2 E.U./dL (0.2-1.0)
[2022-11-27 17:40] LABS: *AMPHETAMINES SCREEN URINE NEGATIVE (NEGATIVE); *BARBITURATES SCREEN URINE NEGATIVE (NEGATIVE); *BENZODIAZEPINES SCREEN URINE NEGATIVE (NEGATIVE); *COCAINE SCREEN URINE NEGATIVE (NEGATIVE); CANNABINOID URINE SCREEN NEGATIVE (NEGATIVE); METHADONE URINE SCREEN NEGATIVE (NEGATIVE); OPIATES URINE SCREEN NEGATIVE (NEGATIVE); PHENCYCLIDINE URINE SCREEN NEGATIVE (NEGATIVE)
[2022-11-27 17:51] LABS: VITAMIN B12 SERUM 717 pg/mL (211-911)
[2022-11-27] MEDS ORDERED: FOLIC ACID 1 MG, THIAMINE HCL 100 MG, MVI, ADULT NO.1 10 ML in DEXT 5%/0.9% NACL 1,000 ML IV ONE ×4 (19:00)
[2022-11-27 19:26] LABS: FOLIC ACID (FOLATE) SERUM > 20.00 ng/mL (>5.38)
[2022-11-27] MEDS ORDERED: BUDESONIDE 0.5MG/2ML NEB HHN SCH (20:00)
[2022-11-28] VITALS (7 sets, daily range): BP systolic 127–146; BP diastolic 60–102
[2022-11-28 06:11] LABS: CHLORIDE 106 mEq/L (98-107)
[2022-11-28 06:24] LABS: BASOPHILS % 0.2 % (0.0-2.0); EOSINOPHILS % 0.2 % (0.0-5.0); HEMATOCRIT. 24.2 % (36.0-48.0); HEMOGLOBIN. 8.2 g/dL (12.0-16.0); LYMPHOCYTES % 21.2 % (20.0-50.0); MEAN CORPUSCULAR HEMOGLOBIN 33.2 pg (28.0-32.0); MEAN CORPUSCULAR VOLUME 97.4 fL (81.0-99.0); MEAN PLATELET VOLUME 7.8 fl (7.4-10.4); MONOCYTES % 8.9 % (2.0-8.0); NEUTROPHILS % 69.5 % (40.0-76.0); PLATELET 177 x1000/uL (130-400); RED BLOOD CELL COUNT 2.48 mill/uL (4.2-5.4)
[2022-11-28 06:28] LABS: HDL CHOLESTEROL 34 mg/dL (40-59); LDL CHOLESTEROL 45 mg/dL (5-100); PHOSPHORUS 2.4 mg/dL (2.5-4.9); T4 FREE 1.14 ng/dL (0.76-1.46); TOTAL IRON BINDING CAPACITY 128 ug/dL (250-450)
[2022-11-28] MEDS ORDERED: POTASSIUM CHLORIDE 20MEQ TABLET SR PO NR (08:00)
[2022-11-28] MEDS ORDERED: NIRM1TAB4 PO (08:21)
[2022-11-28] MEDS ORDERED: MEMA10TA55 PO (08:21)
[2022-11-28] MEDS: PANTOPRAZOLE SODIUM 40 MG/VIAL IV SCH ×2 (08:27→18:17)
[2022-11-28] MEDS ORDERED: MAGNESIUM 2 G PREMIX 50 ML IV SCH (09:00)
[2022-11-28] MEDS ORDERED: POTASSIUM PHOS,M-BASIC-D-BASIC 30 MMOL in DEXT 5% WATER 500 ML IV SCH (09:00)
[2022-11-28] MEDS: SODIUM CHLORIDE 0.9% 1,000 ML IV SCH ×2 (11:53→21:26)
[2022-11-28] MEDS: SUCRALFATE 1 G/10 ML UDC PO SCH ×3 (11:53→21:24)
[2022-11-28 12:32] LABS: HEMATOCRIT 24.4 % (36.0-48.0); HEMOGLOBIN 8.3 g/dL (12.0-16.0)
[2022-11-28] MEDS ORDERED: FERROUS SULFATE 300MG/5ML UDC PO NR (13:30)
[2022-11-28] MEDS: PIPERACILLIN/TAZOBACTAM 3.375 G in DEXTROSE 5% WATER 50 ML IV SCH (16:18)
[2022-11-28 20:31] LABS: HEMATOCRIT 22.7 % (36.0-48.0); HEMOGLOBIN 7.6 g/dL (12.0-16.0)
[2022-11-28] MEDS: DEXT 5%/0.9% NACL 1,000 ML IV SCH (23:37)
[2022-11-29] VITALS (9 sets, daily range): BP systolic 110–151; BP diastolic 66–113
[2022-11-29 01:21] LABS: HEMATOCRIT 23.4 % (36.0-48.0); HEMOGLOBIN 7.9 g/dL (12.0-16.0)
[2022-11-29 03:48] LABS: INR 1.3; PROTHROMBIN TIME 13.9 sec (9.6-11.0)
[2022-11-29 03:49] LABS: HEMATOCRIT. 21.8 % (36.0-48.0); HEMOGLOBIN. 7.4 g/dL (12.0-16.0); MEAN CORPUSCULAR HEMOGLOBIN 32.8 pg (28.0-32.0); MEAN CORPUSCULAR VOLUME 96.4 fL (81.0-99.0); MEAN PLATELET VOLUME 7.7 fl (7.4-10.4); PLATELET 191 x1000/uL (130-400); RED BLOOD CELL COUNT 2.26 mill/uL (4.2-5.4); RED CELL DISTRIBUTION WIDTH 22.8 % (11.6-14.6)
[2022-11-29 04:21] LABS: CHLORIDE 111 mEq/L (98-107)
[2022-11-29 04:37] LABS: PHOSPHORUS 2.1 mg/dL (2.5-4.9)
[2022-11-29] MEDS: SUCRALFATE 1 G/10 ML UDC PO SCH ×4 (06:31→21:48)
[2022-11-29] MEDS ORDERED: POTASSIUM CHLORIDE 20MEQ TABLET SR PO NR ×2 (08:00→10:45)
[2022-11-29] MEDS ORDERED: MAGNESIUM 2 G PREMIX 50 ML IV NR (09:00)
[2022-11-29 09:07] LABS: FOLATE HEMATOCRIT 24.8 % (34.0-46.6)
[2022-11-29 09:07] LABS: VITAMIN D 25-OH 65.1 ng/mL (30.0-100.0)
[2022-11-29] MEDS ORDERED: POTASSIUM PHOS,M-BASIC-D-BASIC 30 MMOL in SODIUM CHLORIDE 0.9% 500 ML IV NR (09:30)
[2022-11-29] MEDS: KCL 20MEQ/100ML PREMIX 100 ML IV SCH ×2 (09:31→11:26)
[2022-11-29] MEDS: PIPERACILLIN/TAZOBACTAM 3.375 G in DEXTROSE 5% WATER 50 ML IV SCH ×3 (09:31→21:48)
[2022-11-29] MEDS: PANTOPRAZOLE SODIUM 40 MG/VIAL IV SCH ×2 (09:32→17:17)
[2022-11-29 11:04] LABS: HEMATOCRIT 21.5 % (36.0-48.0); HEMOGLOBIN 7.5 g/dL (12.0-16.0)
[2022-11-29] MEDS: SODIUM CHLORIDE 0.9% 1,000 ML IV SCH (11:27)
[2022-11-29] MEDS: DEXT 5%/0.9% NACL 1,000 ML IV SCH (12:29)
[2022-11-29] MEDS ORDERED: KCL 10MEQ/50ML PREMIX 50 ML IV NR (12:30)
[2022-11-29 13:00] LABS: NUCLEATED RED BLOOD CELLS 9 /100 WBC; PLATELET ESTIMATE NORMAL
[2022-11-29 23:52] LABS: HEMATOCRIT 23.3 % (36.0-48.0); HEMOGLOBIN 8.1 g/dL (12.0-16.0)
[2022-11-30] VITALS (7 sets, daily range): BP systolic 126–156; BP diastolic 63–89
[2022-11-30] MEDS: SODIUM CHLORIDE 0.9% 1,000 ML IV SCH ×2 (00:24→00:25)
[2022-11-30] MEDS: DEXT 5%/0.9% NACL 1,000 ML IV SCH ×2 (03:44→14:34)
[2022-11-30 04:41] LABS: HEMATOCRIT. 25.4 % (36.0-48.0); HEMOGLOBIN. 8.7 g/dL (12.0-16.0); MEAN CORPUSCULAR HEMOGLOBIN 32.9 pg (28.0-32.0); MEAN CORPUSCULAR VOLUME 96.4 fL (81.0-99.0); MEAN PLATELET VOLUME 8.1 fl (7.4-10.4); PLATELET 197 x1000/uL (130-400); RED BLOOD CELL COUNT 2.63 mill/uL (4.2-5.4); RED CELL DISTRIBUTION WIDTH 22.4 % (11.6-14.6)
[2022-11-30 04:49] LABS: CHLORIDE 107 mEq/L (98-107)
[2022-11-30 05:07] LABS: PHOSPHORUS 2.1 mg/dL (2.5-4.9)
[2022-11-30 05:39] LABS: INR 1.3; PROTHROMBIN TIME 13.4 sec (9.6-11.0)
[2022-11-30] MEDS: SUCRALFATE 1 G/10 ML UDC PO SCH ×5 (06:34→21:45)
[2022-11-30] MEDS: PIPERACILLIN/TAZOBACTAM 3.375 G in DEXTROSE 5% WATER 50 ML IV SCH ×3 (06:34→21:46)
[2022-11-30] MEDS ORDERED: KCL 10MEQ/50ML PREMIX 50 ML IV NR ×2 (08:01→10:00)
[2022-11-30] MEDS ORDERED: POTASSIUM-SODIUM PHOSPHATE POWDER PACKET PO NR (08:30)
[2022-11-30] MEDS: PANTOPRAZOLE SODIUM 40 MG/VIAL IV SCH ×2 (08:49→17:05)
[2022-11-30 11:37] LABS: HEMATOCRIT 27.8 % (36.0-48.0); HEMOGLOBIN 9.2 g/dL (12.0-16.0)
[2022-11-30 11:57] LABS: NUCLEATED RED BLOOD CELLS 7 /100 WBC; PLATELET ESTIMATE NORMAL
[2022-11-30] MEDS ORDERED: SODIUM CHLORIDE 0.9% 10ML VIAL ONE (12:25)
[2022-11-30] MEDS ORDERED: EPHEDRINE SULFATE 50MG/ML VIAL ONE (12:25)
[2022-11-30] MEDS ORDERED: LIDOCAINE HCL 1% 10 MG/ML 10ML VIAL ONE (12:25)
[2022-11-30] MEDS ORDERED: PHENYLEPHRINE HCL 10 MG/ML 1ML (IV VIAL) IV ONE (12:25)
[2022-11-30] MEDS ORDERED: PROPOFOL 200MG/20ML VIAL IV ONE (12:25)
[2022-11-30 13:11] LABS: FOLATE HEMOLYSATE > 620.0 ng/mL (Not Estab.); FOLATE RBC > 2500 ng/mL (>498)
[2022-11-30] MEDS: AMLODIPINE 10MG TABLET PO SCH (14:44)
[2022-11-30 18:50] LABS: HEMATOCRIT 26.4 % (36.0-48.0); HEMOGLOBIN 9.1 g/dL (12.0-16.0)
[2022-11-30] MEDS: GABAPENTIN 100MG CAPSULE PO SCH (21:45)
[2022-12-01] VITALS (7 sets, daily range): BP systolic 122–152; BP diastolic 45–94
[2022-12-01 00:17] LABS: HEMATOCRIT 25.4 % (36.0-48.0); HEMOGLOBIN 8.8 g/dL (12.0-16.0)
[2022-12-01] MEDS: SUCRALFATE 1 G/10 ML UDC PO SCH ×4 (05:57→22:13)
[2022-12-01] MEDS: DEXT 5%/0.9% NACL 1,000 ML IV SCH ×2 (05:58→16:58)
[2022-12-01] MEDS: PIPERACILLIN/TAZOBACTAM 3.375 G in DEXTROSE 5% WATER 50 ML IV SCH ×3 (05:58→22:13)
[2022-12-01 08:01] LABS: HEMATOCRIT. 29.4 % (36.0-48.0); HEMOGLOBIN. 9.5 g/dL (12.0-16.0); MEAN CORPUSCULAR HEMOGLOBIN 32.2 pg (28.0-32.0); MEAN CORPUSCULAR VOLUME 99.6 fL (81.0-99.0); MEAN PLATELET VOLUME 7.5 fl (7.4-10.4); PLATELET 187 x1000/uL (130-400); RED BLOOD CELL COUNT 2.95 mill/uL (4.2-5.4); RED CELL DISTRIBUTION WIDTH 22.8 % (11.6-14.6)
[2022-12-01] MEDS: PANTOPRAZOLE SODIUM 40 MG/VIAL IV SCH ×2 (08:59→16:58)
[2022-12-01] MEDS: AMLODIPINE 10MG TABLET PO SCH (08:59)
[2022-12-01] MEDS ORDERED: MEMANTINE HCL 10MG TABLET PO SCH (09:00)
[2022-12-01 12:55] LABS: CHLORIDE 105 mEq/L (98-107)
[2022-12-01 13:14] LABS: PHOSPHORUS 2.7 mg/dL (2.5-4.9)
[2022-12-01] MEDS ORDERED: POTASSIUM CHLORIDE 20MEQ TABLET SR PO NR (14:00)
[2022-12-01 15:30] LABS: NUCLEATED RED BLOOD CELLS 4 /100 WBC
[2022-12-01 15:31] LABS: PLATELET ESTIMATE NORMAL
[2022-12-01] MEDS: GABAPENTIN 100MG CAPSULE PO SCH (22:13)
[2022-12-02] VITALS: BP 144/80
[2022-12-02 04:00] VITALS: BP 130/92
[2022-12-02] MEDS: SUCRALFATE 1 G/10 ML UDC PO SCH (05:15)
[2022-12-02] MEDS: PIPERACILLIN/TAZOBACTAM 3.375 G in DEXTROSE 5% WATER 50 ML IV SCH (05:15)
[2022-12-02 08:00] VITALS: BP 130/92
[2022-12-04 09:10] LABS: IMMUNOGLOBULIN A 10 mg/dL (64-422); IMMUNOGLOBULIN G 10437 mg/dL (586-1602); IMMUNOGLOBULIN M <5 mg/dL (26-217)
[2022-12-04 13:07] LABS: BETA-2 MICROGLOBULIN SERUM 8.9 mg/L (0.6-2.4)
[2022-12-04 14:08] LABS: KAPPA/LAMBDA RATIO 107.11 (0.26-1.65); LAMBDA LT CHAINS FREE SERUM 3.6 mg/L (5.7-26.3)
== END 2022-12-02 08:45 | disposition home health service (06) | DRG 377 ==
LOC: ER 12:23 → MICUSO 16:20 → EDBEDREQ 16:23 → 3WST 11-28 01:07
PROVIDERS: ADMIT Internal Medicine; ATTEND Internal Medicine
PROC: 30233N1 Transfusion of Nonautologous Red Blood Cells into Peripheral Vein, Percutaneous Approach (ICD-10-PCS; principal; 2022-11-27)
PROC: 0DB68ZX Excision of Stomach, Via Natural or Artificial Opening Endoscopic, Diagnostic (ICD-10-PCS; 2022-11-30)
DX: K29.41 Chronic atrophic gastritis with bleeding (principal); E43 Unspecified severe protein-calorie malnutrition; G92.8 Other toxic encephalopathy; L89.153 Pressure ulcer of sacral region, stage 3; K57.32 Diverticulitis of large intestine without perforation or abscess without bleeding; D62 Acute posthemorrhagic anemia; N17.9 Acute kidney failure, unspecified; I82.511 Chronic embolism and thrombosis of right femoral vein; Z68.1 Body mass index [BMI] 19.9 or less, adult; C90.00 Multiple myeloma not having achieved remission; M48.54XA Collapsed vertebra, not elsewhere classified, thoracic region, initial encounter for fracture; J98.11 Atelectasis; E83.52 Hypercalcemia; E87.6 Hypokalemia; J44.9 Chronic obstructive pulmonary disease, unspecified; M19.90 Unspecified osteoarthritis, unspecified site; I12.9 Hypertensive chronic kidney disease with stage 1 through stage 4 chronic kidney disease, or unspecified chronic kidney disease; N18.2 Chronic kidney disease, stage 2 (mild); Z20.822 Contact with and (suspected) exposure to COVID-19; E11.22 Type 2 diabetes mellitus with diabetic chronic kidney disease; F03.90 Unspecified dementia, unspecified severity, without behavioral disturbance, psychotic disturbance, mood disturbance, and anxiety; M81.0 Age-related osteoporosis without current pathological fracture; Z93.3 Colostomy status; Z87.11 Personal history of peptic ulcer disease; Z90.49 Acquired absence of other specified parts of digestive tract; Z87.442 Personal history of urinary calculi; Z74.01 Bed confinement status
CPT/HCPCS: 36415; 71045; 74176; 78278; 80053; 80061; 80305; 81003; 82232; 82270; 82306; 82330; 82607; 82652; 82728; 82746; 82747; 82784; 83540; 83550; 83605; 83735; 83883; 83970; 84100; 84132; 84134; 84145; 84155; 84165; 84439; 84443; 84484; 85014; 85018; 85025; 85044; 85379; 86334; 86850; 86900; 86920; 87426; 88305; 93005; 93970; 94640; 97162; 97166; 97530; 99285; A6261; A9560; C9113; J0456; J0696; J2370; J2543; J2704; J3411; J3475; J3480; J3490; J7030; J7040; J7042; J7060; J7626; P9016